=== PATIENT | male | born 1990 | race Caucasian/White ===

== ENCOUNTER 2021-04-10 22:51 | Emergency (ER) | payer BC, OTHER ==
[~2021-04-10] VITALS: Ht 182.9 cm; Wt 107.5 kg
[2021-04-10 22:57] VITALS: BP 163/117
--- NOTE | 2021-04-10 23:00 | NUR ---
31 Y/O MALE CAME TO THE ED C/O GOUT FLARE UP. PT'S LT FOOT HAS A SHARP, TIGHT, PRESSURE PAIN OF 9/10. PT'S LEFT FOOT IS SWOLLEN, RED AND WARM TO TOUCH. DENIES N/V/D; SKIN IS PINK/WARM/DRY; AAOX4 WITH EVEN AND STEADY GAIT; LUNGS CLEAR BL; HR EVEN AND REGULAR; PT DENIES ANY FEVER, CP, SOB, OR COUGH AT THIS TIME; PATIENT POSITIONED FOR COMFORT; HOB ELEVATED; BEDRAILS UP X2; BED DOWN. ER MD MADE AWARE OF PT STATUS. PMH: GOUT NKA
[2021-04-11] MEDS ORDERED: INDO-305 PO (00:06)
[2021-04-11] MEDS ORDERED: KETO2CRE4 TP (00:08)
[2021-04-11] MEDS: PANTOPRAZOLE 40 MG TABEC PO ONE (00:19)
[2021-04-11] MEDS: KETOROLAC 60 MG/2 ML VIAL IM ONE (00:19)
[2021-04-11] MEDS: methylPREDNISolone SS 125 MG/2 ML VIAL IM ONE (00:20)
[2021-04-11 00:33] VITALS: BP 145/98
--- NOTE | 2021-04-11 00:34 | NUR ---
Patient discharged with v/s stable. Written and verbal after care instructions given and explained. Patient alert, oriented and verbalized understanding of instructions. Ambulatory with steady gait. All questions addressed prior to discharge. ID band removed. Patient advised to follow up with PMD. Rx of INDOMETHACIN AND KETOCONAZOLE given. Patient educated on indication of medication including possible reaction and side effects. Opportunity to ask questions provided and answered.
== END 2021-04-11 00:33 | disposition home or self-care (01) ==
LOC: MED 22:51
DX: M10.072 Idiopathic gout, left ankle and foot (principal); Z79.899 Other long term (current) drug therapy
CPT/HCPCS: 96372; 99284; J1885; J2930

== ENCOUNTER 2022-06-08 20:54 | Emergency (ER) | payer OTHER ==
[~2022-06-08] VITALS: Ht 180.3 cm; Wt 106.2 kg
[~2022-06-08 20:54] MED LIST: INDO-305 PO; KETO2CRE4 TP
[2022-06-08 21:35] VITALS: BP 182/118
--- NOTE | 2022-06-08 21:35 | NUR ---
05/24 RT ANKLE PAIN XSAT. DENIES INJURIES. PT STATES HE HAS HX OF GOUT. TOOK IBUPROFEN AND STERIOD AT 3PM HX:GOUT, HTN
--- NOTE | 2022-06-08 21:40 | NUR ---
PT SENT TO LOBBY.
[2022-06-08] MEDS ORDERED: KETOROLAC 60 MG/2 ML VIAL IM ONE (22:35)
[2022-06-08] MEDS ORDERED: COLC-30 PO (22:47)
[2022-06-08] MEDS ORDERED: INDO-304 PO (22:47)
[2022-06-08] MEDS ORDERED: METH4TAB1 PO (22:47)
[2022-06-08 23:05] VITALS: BP 182/118
--- NOTE | 2022-06-08 23:05 | NUR ---
Patient discharged with v/s stable. Written and verbal after care instructions given and explained. Patient alert, oriented and verbalized understanding of instructions. Ambulatory with steady gait. All questions addressed prior to discharge. ID band removed. Patient advised to follow up with PMD. Rx of COLCHINE, INDOMETHACIN, MEDROL given. Patient educated on indication of medication including possible reaction and side effects. Opportunity to ask questions provided and answered.
== END 2022-06-08 23:05 | disposition home or self-care (01) ==
LOC: MED 20:54
DX: M10.072 Idiopathic gout, left ankle and foot (principal); M10.071 Idiopathic gout, right ankle and foot; Z79.899 Other long term (current) drug therapy
CPT/HCPCS: 73610; 96372; 99283; J1885

== ENCOUNTER 2023-01-07 12:16 | Emergency (ER) | payer OTHER ==
[~2023-01-07] VITALS: Ht 180.3 cm; Wt 107.2 kg
[~2023-01-07 12:16] MED LIST changes: +COLC-30 PO; +INDO-304 PO; +METH4TAB1 PO
[2023-01-07 13:11] VITALS: BP 173/94
--- NOTE | 2023-01-07 13:16 | NUR ---
JOSEFINA. HANDED ON URINE CUP.
[2023-01-07] MEDS ORDERED: KETOROLAC 30 MG/ML VIAL IM ONE (13:50)
[2023-01-07] MEDS ORDERED: GABA300C PO (14:00)
[2023-01-07] MEDS ORDERED: CYCL-711 PO (14:00)
[2023-01-07] MEDS ORDERED: LID5T TP (14:00)
[2023-01-07] MEDS ORDERED: IBUP-2213 PO (14:00)
[2023-01-07 14:43] VITALS: BP 155/107
--- NOTE | 2023-01-07 14:43 | NUR ---
Patient discharged with v/s stable. Written and verbal after care instructions ABOUT SCIATICA AND LUMBAR STRAIN given and explained. Patient alert, oriented and verbalized understanding of instructions. Ambulatory with steady gait. All questions addressed prior to discharge. ID band removed. Patient advised to follow up with PMD. Rx of FLEXERIL, GABAPENTIN, IBUPROFEN, LIDOCAINE PATCH given. Patient educated on indication of medication including possible reaction and side effects. Opportunity to ask questions provided and answered. JACOB YODER AWARE OF VITALS, OKAY TO D/C
== END 2023-01-07 14:43 | disposition home or self-care (01) ==
LOC: MED 12:16
DX: S39.012A Strain of muscle, fascia and tendon of lower back, initial encounter (principal); M54.16 Radiculopathy, lumbar region; Z79.899 Other long term (current) drug therapy; Z79.1 Long term (current) use of non-steroidal anti-inflammatories (NSAID); X50.1XXA Overexertion from prolonged static or awkward postures, initial encounter; Y93.89 Activity, other specified; Y92.89 Other specified places as the place of occurrence of the external cause; Y99.8 Other external cause status
CPT/HCPCS: 96372; 99283; J1885

== ENCOUNTER 2024-01-07 09:40 | Emergency (ER) | payer OTHER ==
[~2024-01-07] VITALS: Ht 172.7 cm; Wt 81.2 kg
[~2024-01-07 09:40] MED LIST changes: +CYCL-711 PO; +GABA300C PO; +IBUP-2213 PO; +LID5T TP
[2024-01-07 09:43] VITALS: BP 164/111; PULSE 74; RESP 16; TEMP 98.1; O2SAT 99
[2024-01-07] MEDS: KETOROLAC 60 MG/2 ML VIAL IM ONE (11:03)
[2024-01-07] MEDS ORDERED: IBUP-2213 PO (12:14)
== END 2024-01-07 12:20 | disposition home or self-care (01) ==
LOC: MED 09:40
DX: M54.50 Low back pain, unspecified (principal); J45.909 Unspecified asthma, uncomplicated; I10 Essential (primary) hypertension; Z79.899 Other long term (current) drug therapy; W01.0XXA Fall on same level from slipping, tripping and stumbling without subsequent striking against object, initial encounter; Y92.89 Other specified places as the place of occurrence of the external cause; Y93.89 Activity, other specified; Y99.0 Civilian activity done for income or pay
CPT/HCPCS: 72100; 96372; 99283; J1885